=== PATIENT | female | born 1995 | race Two or more races ===

== ENCOUNTER 2019-06-29 11:58 | Inpatient (IN) | payer OTHER ==
[~2019-06-29] VITALS: Ht 167.6 cm; Wt 101.6 kg
[2019-07-22] MEDS ORDERED: PRENATAL CAPLE1 EAC1 PO (13:35)
[2019-07-24] MEDS ORDERED: Dermoplast SPRAY TOP (12:44)
[2019-07-24] MEDS ORDERED: DOCUSATE SODIU100 MG PO (12:44)
[2019-07-24] MEDS ORDERED: ACETAMINOPHEN325 M1 PO (12:44)
[2019-07-24] MEDS ORDERED: ANALPRAM HC 2.5%4 GM RECTAL (12:44)
== END 2019-07-24 15:57 | disposition home or self-care (01) | DRG 768 ==
LOC: OB/GYN 07-08 12:15 → LDR 07-22 05:07 → OB/GYN 07-22 19:25
PROVIDERS: ADMIT Specialist
PROC: 0DQR0ZZ Repair Anal Sphincter, Open Approach (ICD-10-PCS; 2019-07-22)
PROC: 0UQMXZZ Repair Vulva, External Approach (ICD-10-PCS; 2019-07-22)
PROC: 0UQGXZZ Repair Vagina, External Approach (ICD-10-PCS; 2019-07-22)
PROC: 4A1HXCZ Monitoring of Products of Conception, Cardiac Rate, External Approach (ICD-10-PCS; 2019-07-22)
PROC: 10E0XZZ Delivery of Products of Conception, External Approach (ICD-10-PCS; principal; 2019-07-22 18:00)
DX: O70.21 Third degree perineal laceration during delivery, IIIa (principal); O71.82 Other specified trauma to perineum and vulva; Z37.0 Single live birth; Z3A.39 39 weeks gestation of pregnancy

== ENCOUNTER 2021-06-14 13:30 | Inpatient (IN) | payer OTHER ==
[~2021-06-14] VITALS: Ht 170.2 cm; Wt 102.5 kg
[~2021-06-14 13:30] MED LIST: ACETAMINOPHEN325 M1 PO; ANALPRAM HC 2.5%4 GM RECTAL; DOCUSATE SODIU100 MG PO; Dermoplast SPRAY TOP; PRENATAL CAPLE1 EAC1 PO
[2021-06-29] MEDS ORDERED: PROGESTERONE200 MG (16:19)
[2021-06-29] MEDS ORDERED: DERMOPLAST FIRS78 GM TOP (16:20)
[2021-07-01] MEDS ORDERED: DERMOPLAST PAIN78 GM TOP (11:01)
[2021-07-01] MEDS ORDERED: OXYC1TAB9 PO (11:01)
[2021-07-01] MEDS ORDERED: DOCUSATE SODIU100 MG PO (11:01)
[2021-07-01] MEDS ORDERED: HYDROCORTISO453.6 G1 RECTAL (11:01)
== END 2021-07-01 14:28 | disposition home or self-care (01) | DRG 807 ==
LOC: SURH 06-24 13:30 → LDR 06-29 05:42 → OB/GYN 06-30 13:37
PROVIDERS: ADMIT Specialist; ATTEND Specialist
PROC: 10E0XZZ Delivery of Products of Conception, External Approach (ICD-10-PCS; principal; 2021-06-29)
PROC: 10907ZC Drainage of Amniotic Fluid, Therapeutic from Products of Conception, Via Natural or Artificial Opening (ICD-10-PCS; 2021-06-29)
PROC: 0W8NXZZ Division of Female Perineum, External Approach (ICD-10-PCS; 2021-06-29)
PROC: 4A1HXFZ Monitoring of Products of Conception, Cardiac Rhythm, External Approach (ICD-10-PCS; 2021-06-29)
DX: O80 Encounter for full-term uncomplicated delivery (principal); Z37.0 Single live birth; Z3A.39 39 weeks gestation of pregnancy; Z20.822 Contact with and (suspected) exposure to COVID-19